=== PATIENT | male | born 1965 | race Caucasian/White ===

== ENCOUNTER 2018-06-28 23:50 | Emergency (ER) | payer OTHER, SELFPAY ==
[2018-06-28 23:51] VITALS: BP 164/94; PULSE 73; RESP 16; TEMP 36.7; O2SAT 96; BMI 36.8
--- NOTE | 2018-06-29 00:07 | ED.VISSUMM ---
- ER Visit Summary Date of Service: 06/29/18 Chief Complaint: Fingertip laceration History of Present Illness: The patient is a 53 M presents to the emergency department with laceration to the distal tip of his right fourth finger. The patient is right-hand dominant. His last tetanus was less than 5 years ago. He states that he was using a mandolin slicer and got into the tip of his finger. He denies other injury. He is otherwise healthy. Is not on any daily medications. Physical Examination: Exam is relatively unremarkable. Patient does have a small 0.5 cm ovoid avulsion of the distal tip of the finger. It does not involve the nailbed. Cap refill less than 2 seconds. There is minimal active bleeding. Flexion and extension are preserved. Test Results: [] Emergency Department Course and Treatment: The patient has a partial tissue avulsion. There is nothing that would benefit from primary repair. The area was anesthetized and cleaned. Tourniquet was applied. The area was glued. The tourniquet was removed. There is no further bleeding. The patient will be held out of his work with gloves and lifting for the next week until this heals due to the risk of rebleed. He is comfortable with this. He will be discharged home. Treatment Plan: [] Disposition: Discharge Impression: 1. Dermal avulsion right fourth finger with Dermabond repair This note was generated with [employer] dictation software. It may contain incorrect words, spelling, and punctuation that were not noted in review of the chart prior to signing ED Disposition - Plan for ED Patient: Instructions: ED Avulsion Dermal Referrals: Grant Springer [Primary Care Provider] -
[2018-06-29 00:31] VITALS: BP 134/69; PULSE 77; RESP 15; O2SAT 98
== END 2018-06-29 00:33 | disposition home or self-care (01) ==
LOC: ED 06-29 00:31
PROVIDERS: Emergency Provider Emergency Medicine; Family Provider Family Medicine
DX: S61.214A Laceration without foreign body of right ring finger without damage to nail, initial encounter (principal); W45.8XXA Other foreign body or object entering through skin, initial encounter
CPT/HCPCS: 12001; 99282